=== PATIENT | male | born 1960 | race African-American/Black ===

== ENCOUNTER 2022-01-22 15:24 | Emergency (ER) | payer OTHER ==
[~2022-01-22] VITALS: Ht 175.3 cm; Wt 64.4 kg
[2022-01-22 15:33] VITALS: BP 147/91
[2022-01-22 16:35] LABS: BASOPHILS % (AUTO) 0.3 % (0.0-2.0); EOSINOPHILS # (AUTO) 0.1 K/uL (0-0.4); EOSINOPHILS % (AUTO) 1.5 % (0.0-4.0); HEMATOCRIT 41.5 % (36-52); HEMOGLOBIN 14.1 g/dL (12.0-18.0); LYMPHOCYTES # (AUTO) 1.6 K/uL (2.0-11.5); LYMPHOCYTES % (AUTO) 21.8 % (20.5-51.1); MEAN CORPUSCULAR HEMOGLOBIN 33 pg (27-31); MEAN CORPUSCULAR HGB CONC 34 g/dL (33-37); MEAN CORPUSCULAR VOLUME 96.3 fL (80-94); MONOCYTES # (AUTO) 0.6 K/uL (0.8-1.0); MONOCYTES % (AUTO) 7.6 % (1.7-9.3); NEUTROPHILS # (AUTO) 5.1 K/uL (1.8-7.7); NEUTROPHILS % (AUTO) 68.8 % (42.2-75.2); PLATELET COUNT (AUTO) 170 K/uL (140-450); RED BLOOD CELL COUNT(AUTO) 4.31 MIL/uL (4.20-6.10); RED CELL DISTRIBUTION WIDTH 12.4 % (11.6-13.7); WHITE BLOOD COUNT (AUTO) 7.3 K/uL (4.8-10.8)
--- NOTE | 2022-01-22 16:45 | NUR ---
61/M PRESENTS TO ED WITH C/O RIGHT LEG NUMBNESS X1 WEEK, REPORTS CONCERN BECAUSE HE IS DIABETIC. DENIES RECENT INJURY OR TRAUMA, DENIES FACE OR HAND NUMBNESS, HEADACHES OR DIZZINESS.
[2022-01-22 17:01] LABS: ALBUMIN 4.2 g/dL (3.4-5.0); ANION GAP 14.8 (8-16); CARBON DIOXIDE 25.8 mmol/L (21-32); CREATININE 1.3 mg/dL (0.6-1.3); POTASSIUM 3.6 mmol/L (3.5-5.1); TOTAL BILIRUBIN 0.4 mg/dL (0.0-1.0)
[2022-01-22] MEDS ORDERED: GABA300C PO (17:56)
[2022-01-22] MEDS ORDERED: VIT1TAB10 PO (17:56)
[2022-01-22 18:31] VITALS: BP 140/77
--- NOTE | 2022-01-22 18:31 | NUR ---
Patient discharged with v/s stable. Written and verbal after care instructions ABOUT PERIPHERAL NEUROPATHY given and explained. Patient alert, oriented and verbalized understanding of instructions. Ambulatory with steady gait. All questions addressed prior to discharge. ID band removed. Patient advised to follow up with PMD. Rx of NEURONTIN AND VITAMIN B COMPLEX given. Patient educated on indication of medication including possible reaction and side effects. Opportunity to ask questions provided and answered.
== END 2022-01-22 18:31 | disposition home or self-care (01) ==
LOC: MED 15:24
DX: E11.40 Type 2 diabetes mellitus with diabetic neuropathy, unspecified (principal); F10.10 Alcohol abuse, uncomplicated; Y90.9 Presence of alcohol in blood, level not specified; E78.5 Hyperlipidemia, unspecified; M19.90 Unspecified osteoarthritis, unspecified site; F17.210 Nicotine dependence, cigarettes, uncomplicated; Z71.6 Tobacco abuse counseling; Z79.899 Other long term (current) drug therapy; Z79.4 Long term (current) use of insulin; Z98.890 Other specified postprocedural states
CPT/HCPCS: 36415; 80053; 85025; 99283